=== PATIENT | male | born 1995 | race Asian ===

== ENCOUNTER 2020-10-23 10:18 | Day surgery (SDC) | payer OTHER ==
[2020-10-15 14:42] VITALS: BMI 21.9
[2020-10-23] MEDS ORDERED: LIDOCAINE HCL/PF 2% SDV 5ML VIAL ONE (11:26)
[2020-10-23] MEDS ORDERED: MIDAZOLAM HCL 2 MG/2 ML SINGLE DOSE VIAL ONE (11:27)
[2020-10-23] MEDS ORDERED: PROPOFOL 20 ML ONE (11:27)
[2020-10-23] MEDS ORDERED: ONDANSETRON 4 MG/2 ML VIAL ONE (12:12)
[2020-10-23] MEDS ORDERED: DEXAMETHASONE SOD PHOSPHATE 4 MG/1 ML VIAL ONE (12:12)
[2020-10-23] MEDS ORDERED: IBUPROFEN 800 MG/8 ML IJ IVPB PRN (13:10)
[2020-10-23] MEDS ORDERED: oxyCODONE HCL 5 MG TABLET PO PRN (13:10)
[2020-10-23] MEDS ORDERED: ONDANSETRON 4 MG/2 ML VIAL IVPUSH PRN (13:10)
[2020-10-23] MEDS ORDERED: ACETAMINOPHEN 1000 MG/100 ML VIAL (NON FORMULARY) IVPB PRN (13:11)
[2020-10-23] MEDS ORDERED: LACTATED RINGERS SOLUTION 1,000 ML IV SCH (13:15)
[2020-10-23] MEDS ORDERED: ACETAMINOPHEN INJECTION 100 ML IVPB ONE (13:49)
[2020-10-23 14:34] VITALS: TEMP 97.8
[2020-10-23 14:53] VITALS: BP 118/71; PULSE 82
== END 2020-10-23 15:05 | disposition home or self-care (01) ==
LOC: FASU 10:18
PROVIDERS: ATTEND Orthopaedic Surgery Hand Surgery
PROC: 0RBN4ZZ Excision of Right Wrist Joint, Percutaneous Endoscopic Approach (ICD-10-PCS; principal; 2020-10-23 12:23)
DX: M67.431 Ganglion, right wrist (principal); M24.131 Other articular cartilage disorders, right wrist; M65.9 Synovitis and tenosynovitis, unspecified
CPT/HCPCS: 94760; J0131